=== PATIENT | male | born 1935 | race Caucasian/White ===

== ENCOUNTER 2019-06-20 09:42 | Emergency (ER) | payer MEDICARE, BC ==
[2019-06-20 10:05] VITALS: RESP 16; TEMP 97.9
--- NOTE | 2019-06-20 11:01 | XR ---
EXAM TYPE: LUMBAR SPINE X RAY SERIES COMPARISON: NONE HISTORY: Pain TECHNIQUE: 3 views are submitted. FINDINGS: Alignment is anatomic. The pedicles are intact. The transverse processes are intact. There is no s pondylolysis or spondylolisthesis. Extensive hypertrophic spurring noted with multilevel degenerativ e disc disease. Most marked findings at L5-S1. No compressive deformities. Cardiac leads are noted an d there are vascular calcifications. IMPRESSION: 1. Multilevel hypertrophic changes and degenerative disc disease..
--- NOTE | 2019-06-20 11:26 | ED ---
Back Pain HPI - General Chief Complaint: Back Pain/Injury Stated Complaint: LOWER BACK PAIN Time Seen by Provider: 06/20/19 10:05 Source: patient, family Limitations: no limitations - History of Present Illness Initial Comments: Patient is an 84-year-old male presenting to emergency Department with complaints of low back pain times one week. Patient states last week he was doi ng a lot of yard work bending and twisting. Patient states later on in the day he noticed some soreness in his left low back. He has been doing heat to the area as well as using Motrin with some relief of symptoms. Patient states at night he has a hard time getting comfortable. He came here today because he felt like the pain was getting worse. Denies any falls or trauma to his back. Patient states he did have surgery on his back in the 1970s. Patient has no other complaints at this time. Patient denies fever, chills, numbness and tingling into his lower extremities, saddle paresthesias, trouble with urination or defecation. Upon arrival to the ER, vital signs are stable. Review of Systems ROS Statement: Those systems with pertinent positive or pertinent negative responses have been documented in the HPI. ROS Other: All systems not noted in ROS Statement are negative. Past Medical History Past Medical History: Coronary Artery Disease (CAD) History of Any Multi-Drug Resistant Organisms: None Reported Additional Past Surgical History / Comment(s): back sx Smoking Status: Never smoker Past Alcohol Use History: Rare Past Drug Use History: None Reported General Exam - General Exam Comments Initial Comments: GENERAL: Well-appearing, well-nourished and in no acute distress. HEAD: Atraumatic, normocephalic. EYES: Pupils equal round and reactive to light, extraocular movements intact, sclera anicteric, conjunctiva are normal. NECK: Normal range of motion, supple without lymphadenopathy or JVD. LUNGS: Breath sounds clear to auscultation bilaterally and equal. No wheezes rales or rhonchi. HEART: Regular rate and rhythm without murmurs, rubs or gallops. ABDOMEN: Soft, nontender, normoactive bowel sounds. No masses appreciated. EXTREMITIES: No pain with palpation of the lumbar paraspinals. Mild pain with trunk flexion. Patient has 5 out of 5 strength in the lower extremities. Patient's sensation is normal and equal bilaterally of the lower extremities. No pitting or edema. No clubbing or cyanosis. NEUROLOGICAL: Cranial nerves II through XII grossly intact. Normal speech, normal gait. PSYCH: Normal mood, normal affect. SKIN: Warm, Dry, normal turgor, no rashes or lesions noted. Limitations: no limitations Course Vital Signs 06/20/19 06/20/19 10:03 11:46 Temperature 97.9 F Pulse Rate 73 76 Respiratory 16 16 Rate Blood Pressure 121/74 121/75 O2 Sat by Pulse 99 99 Oximetry Medical Decision Making - Medical Decision Making Patient is an 84-year-old male presenting with a left lumbar strain x 1 week. X-rays reveal no acute abnormalities. Multilevel hypertrophic changes and degenerative disc disease. Patient will continue to use Motrin twice a day as needed for pain as well as heat to the area sleeping positions were discussed with the patient. Patient will follow up with PCP if symptoms persist. Patient is in agreement with this plan of care. Patient is stable for discharge. Return parameters were discussed with the patient and he verbalized understanding. Case discussed with Dr. Barnett. Disposition Clinical Impression: Strain of lumbar region Disposition: HOME SELF-CARE Condition: Stable Instructions (If sedation given, give patient instructions): Acute Low Back Pain (ED) Additional Instructions: Please return to the Emergency Department if symptoms worsen or any other concerns. Use heat on the low back. Try sleeping with a pillow in between U knees when sleeping on her side or undue year knee is when sleeping on her back. Use ibuprofen at night and in the morning for pain relief. Follow-up with your primary care physician or an orthopedic cast specialist at symptoms persist for 1 more week. Is patient prescribed a controlled substance at d/c from ED?: No Referrals: Leif Tran MD [Primary Care Provider] - 1-2 days
[2019-06-20 11:48] VITALS: BP 121/75; PULSE 76
== END 2019-06-20 11:39 | disposition home or self-care (01) ==
LOC: EC 09:42
DX: S39.012A Strain of muscle, fascia and tendon of lower back, initial encounter (principal); M51.36 Other intervertebral disc degeneration, lumbar region; Z98.890 Other specified postprocedural states; X50.1XXA Overexertion from prolonged static or awkward postures, initial encounter; Y93.89 Activity, other specified; Y92.017 Garden or yard in single-family (private) house as the place of occurrence of the external cause
CPT/HCPCS: 72100; 99283

== ENCOUNTER → 2020-01-15 | Outpatient (CLI) | payer MEDICARE, BC | END | disposition home or self-care (01) | LOC: LABWHC1 07:22 | PROVIDERS: ATTEND Internal Medicine Clinical Cardiac Electrophysiology | DX: U07.1 COVID-19 (principal) | CPT/HCPCS: 87635 ==

== ENCOUNTER 2020-01-17 11:10 | Day surgery (SDC) | payer MEDICARE, BC ==
[2020-01-16 08:55] VITALS: BMI 25.0
[~2020-01-17 11:10] MED LIST: LACTATED RINGERS 1,000 ML IV SCH; SODIUM CHLORIDE 0.9% 1,000 ML IV SCH; ceFAZolin 1,000 MG in SODIUM CHLORIDE 0.9% IRRIGATIO 250 ML IRRIGATION ONE
[2020-01-17 11:50] LABS: Glucose,Whole Blood 130 mg/dL (75-99)
[2020-01-17 11:51] VITALS: RESP 18; TEMP 97.7
[2020-01-17] MEDS ORDERED: LIDOCAINE 1% INJ 10MG/ML (20 ML MDV) ONE (11:56)
[2020-01-17] MEDS ORDERED: PROPOFOL 10 MG/ML 20 ML VIAL IV ONE (12:00)
[2020-01-17] MEDS ORDERED: MIDAZOLAM 2 MG/2 ML VIAL ONE (12:00)
[2020-01-17] MEDS ORDERED: fentaNYL (PF) 50 MCG/ML 2 ML AMP ONE (12:00)
[2020-01-17 12:22] LABS: Calcium 9.1 mg/dL (8.4-10.2); Potassium 5.4 mmol/L (3.5-5.1)
[2020-01-17 12:31] LABS: HCT 41.1 % (39.0-53.0); HGB 13.5 gm/dL (13.0-17.5); MCH 33.7 pg (25.0-35.0); MCHC 32.8 g/dL (31.0-37.0); Macrocytosis Slight; Mean Platelet Volume 9.7; Platelet Count 176 k/uL (150-450); RBC 3.99 m/uL (4.30-5.90); RDW 12.9 % (11.5-15.5); WBC 6.9 k/uL (3.8-10.6)
[2020-01-17] MEDS ORDERED: LIDOCAINE 1% INJ 10MG/ML (20 ML MDV) SQ ONE (12:39)
[2020-01-17] MEDS ORDERED: SODIUM CHLORIDE 0.9% 500 ML 500 ML IV ONE (13:04)
[2020-01-17 13:05] LABS: Eosinophils # (M) 0.35 k/uL (0-0.7); Monocytes # (M) 0.62 k/uL (0-1.0); Neutrophils # (M) 5.04 k/uL (1.3-7.7); Neutrophils % (M) 73 %; Nucleated Red Blood Cells 0 /100 WBC (0-0); Total Cells Counted 100
[2020-01-17 13:06] LABS: Anisocytosis (M) Present
[2020-01-17] MEDS ORDERED: ACETAMINOPHEN TAB 325 MG TAB PO PRN (13:30)
--- NOTE | 2020-01-17 13:38 | P.DS ---
Providers Attending physician: Collin Trujillo Primary care physician: [facility] Course: Patient underwent dual-chamber ICD generator change successfully. He has known underlying ischemic cardiomyopathy and is on appropriate heart failure medications. He'll be discharged home after her second dose of IV antibiotics at 6 PM today and will follow-up in the device clinic within 5-7 days Plan - Discharge Summary Discharge Rx Participant: No New Discharge Prescriptions: Continue Spironolactone [Aldactone] 25 mg PO 1200 Donepezil [Aricept] 5 mg PO PC-SUPPER Atorvastatin [Lipitor] 40 mg PO PC-SUPPER metFORMIN HCL [Glucophage] 500 mg PO BID Metoprolol Succinate (ER) [Toprol XL] 100 mg PO QAM Metoprolol Succinate (ER) [Toprol XL] 50 mg PO HS Lisinopril [Zestril] 5 mg PO 1200 Sertraline [Zoloft] 25 mg PO HS Dutasteride [Avodart] 0.5 mg PO HS Aspirin 162 mg PO QAM Multivit-Min/FA/Lycopen/Lutein [Centrum Silver Tablet] 1 each PO DAILY Ibuprofen 200 mg PO BID Discharge Medication List Aspirin 162 mg PO QAM 01/16/20 [History] Atorvastatin [Lipitor] 40 mg PO PC-SUPPER 01/16/20 [History] Donepezil [Aricept] 5 mg PO PC-SUPPER 01/16/20 [History] Dutasteride [Avodart] 0.5 mg PO HS 01/16/20 [History] Ibuprofen 200 mg PO BID 01/16/20 [History] Lisinopril [Zestril] 5 mg PO 1200 01/16/20 [History] Metoprolol Succinate (ER) [Toprol XL] 50 mg PO HS 01/16/20 [History] Metoprolol Succinate (ER) [Toprol XL] 100 mg PO QAM 01/16/20 [History] Multivit-Min/FA/Lycopen/Lutein [Centrum Silver Tablet] 1 each PO DAILY 01/16/20 [History] Sertraline [Zoloft] 25 mg PO HS 01/16/20 [History] Spironolactone [Aldactone] 25 mg PO 1200 01/16/20 [History] metFORMIN HCL [Glucophage] 500 mg PO BID 01/16/20 [History] Follow up Appointment(s)/Referral(s): Collin Trujillo MD [STAFF PHYSICIAN] - 1 Week (Device clinic follow-up within [address] Trujillo in 3-4 months / Follow-up with Dr. Trujillo/Lilly Carcamo/María Elena Wilkins) Activity/Diet/Wound Care/Special Instructions: Keep wound dry for 5 days Discharge home after 6 PM after IV antibiotic No change in medications Discharge Disposition: HOME SELF-CARE
[2020-01-17] MEDS ORDERED: ACETAMINOPHEN IV (For NPO) 1,000 MG in EMPTY BAG 1 BAG IVPB ONE (14:00)
--- NOTE | 2020-01-17 15:28 | PCN ---
PROCEDURE NOTE Blas Zimmreman is a 85-year-old gentleman with ischemic cardiomyopathy whose dual- chamber ICD is now at [facility]. He is brought in for a dual-chamber ICD generator change. He has known underlying ischemic cardiomyopathy with severe LV dysfunction. The patient brought to the EP lab in a fasting state and informed consent was obtained prior to the procedure. Serial fluoroscopy with leads was performed in the dual- chamber system was noted. The atrial lead was screwed in the right atrial appendage. He has a dual coil ICD. No fractures or breaks are noted. The left pectoral area was prepped and draped as per protocol. 1% lidocaine was used for local anesthesia. A 4 cm incision was made parallel to the deltopectoral groove, about 1.5 cm medial to it. The incision was carried down to the level of the pectoralis muscle. A subfascial pocket was made. Hemostasis was assured. The left axillary vein was accessed at two separate points. The old generator was explanted, a partial capsulectomy was performed. The leads were freed from the surrounding capsule and scar tissue and interrogated and then connected to the new generator. The P waves were 1.1 mV, pacing impedance 475 ohms, pacing threshold 0.75 V at 0.5 milliseconds. The RV lead was functioning normally. R-wave 16.5 mV, pacing impedance 893 ohms, pacing threshold 1 V at 0.4 milliseconds. The new generator implanted was [employer]onic Evera MRI XT model #DDMB 1D1, serial #[id number]. The patient tolerated the procedure well without any acute complications. PLAN: IV antibiotics and discharged home in 6 hours. MMODL / IJN: [id number] /
[2020-01-17 15:34] VITALS: BP 131/66; PULSE 51
== END 2020-01-17 18:30 | disposition home or self-care (01) ==
LOC: CATHEP 11:10
PROVIDERS: ATTEND Internal Medicine Clinical Cardiac Electrophysiology
DX: Z45.02 Encounter for adjustment and management of automatic implantable cardiac defibrillator (principal); I25.5 Ischemic cardiomyopathy; I13.0 Hypertensive heart and chronic kidney disease with heart failure and stage 1 through stage 4 chronic kidney disease, or unspecified chronic kidney disease; I50.22 Chronic systolic (congestive) heart failure; I47.2 Ventricular tachycardia; E78.5 Hyperlipidemia, unspecified; I25.10 Atherosclerotic heart disease of native coronary artery without angina pectoris; I25.2 Old myocardial infarction; E78.00 Pure hypercholesterolemia, unspecified; E87.5 Hyperkalemia; I49.5 Sick sinus syndrome; E10.22 Type 1 diabetes mellitus with diabetic chronic kidney disease; N18.3 Chronic kidney disease, stage 3 (moderate); I70.0 Atherosclerosis of aorta; Z87.891 Personal history of nicotine dependence; Z79.899 Other long term (current) drug therapy; Z79.82 Long term (current) use of aspirin; Z79.84 Long term (current) use of oral hypoglycemic drugs; Z79.1 Long term (current) use of non-steroidal anti-inflammatories (NSAID); Z98.890 Other specified postprocedural states; Z91.89 Other specified personal risk factors, not elsewhere classified; Z95.5 Presence of coronary angioplasty implant and graft
CPT/HCPCS: 33263; 80048; 85025; C1721; J2250; J0690; J2001; J3010; J2704